=== PATIENT | male | born 1955 | race Caucasian/White ===

== ENCOUNTER 2018-04-19 07:50 | Outpatient (CLI) | payer MEDICARE ==
--- NOTE | 2018-04-19 10:06 | ULT ---
AORTIC ULTRASOUND: HISTORY: Evaluate for aneurysm. COMPARISON: None. TECHNIQUE: Sagittal and transverse imaging of the aorta is performed. FINDINGS: The proximal aorta measures 1.7 x 1.9 x 2.2 cm. The mid aorta measures 1.6 x 1.9 x 1.5 cm. Distal a latesha measures 1.7 x 1.1 x 1.5 cm. IMPRESSION: No evidence of aneurysmal dilatation. POS: [facility]
== END 2018-04-19 07:51 | disposition home or self-care (01) ==
LOC: BICULT 07:50
PROVIDERS: ATTEND Family Medicine
DX: Z00.00 Encounter for general adult medical examination without abnormal findings (principal); Z13.6 Encounter for screening for cardiovascular disorders
CPT/HCPCS: 76775

== ENCOUNTER 2018-06-03 10:25 | Emergency (ER) | payer MEDICARE, OTHER ==
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
== END 2018-06-03 11:42 | disposition home or self-care (01) ==
LOC: ERS 10:25
DX: I10 Essential (primary) hypertension (principal); R42 Dizziness and giddiness; V89.2XXA Person injured in unspecified motor-vehicle accident, traffic, initial encounter
CPT/HCPCS: 70450; 93005